=== PATIENT | male | born 1955 | race African-American/Black ===

== ENCOUNTER 2020-07-15 04:27 | Day surgery (SDC) | payer BC ==
[2020-07-14 08:19] VITALS: BMI 33.5
[2020-07-15] MEDS ORDERED: INSULIN (NOVOLOG) ASPART 100 UNITS/ML 10ML VIAL SQ ONE (10:30)
[2020-07-15] MEDS ORDERED: INSULIN REGULAR HUMAN 100 UNITS/ML *VIAL SQ ONE (10:30)
[2020-07-15] MEDS ORDERED: DESFLURANE GAS 240 ML BOTTLE IH ONE (10:44)
[2020-07-15] MEDS ORDERED: PROPOFOL 20 ML ONE (10:44)
[2020-07-15] MEDS ORDERED: MIDAZOLAM HCL 2 MG/2 ML SINGLE DOSE VIAL ONE (10:45)
[2020-07-15] MEDS ORDERED: SUCCINYLCHOLINE CHLORIDE 200 MG/10 ML SYRINGE ONE (10:46)
[2020-07-15] MEDS ORDERED: ceFAZolin SODIUM 1 GM VIAL IVPB ONE (11:39)
[2020-07-15] MEDS ORDERED: GENTAMICIN 80MG PREMIX BAG IVPB ONE (11:40)
[2020-07-15] MEDS ORDERED: FUROSEMIDE 40 MG/4 ML INJECTABLE VIAL ONE (12:02)
[2020-07-15] MEDS ORDERED: oxyCODONE HCL 5 MG TABLET PO PRN ×2 (12:32→13:09)
[2020-07-15] MEDS ORDERED: DEXTROSE 5%-0.45% SALINE 1,000 ML IV SCH (12:45)
[2020-07-15] MEDS ORDERED: ONDANSETRON 4 MG/2 ML VIAL IVPUSH PRN (13:09)
[2020-07-15] MEDS ORDERED: LACTATED RINGERS SOLUTION 1,000 ML IV SCH (13:15)
[2020-07-15 15:54] VITALS: BP 145/79; PULSE 66; TEMP 98.6
[2020-07-28 10:28] LABS: CA OXALATE MONOHYDR. 10%; SIZE 3 x 7; URIC ACID 90%; WEIGHT 176
== END 2020-07-15 15:50 | disposition home or self-care (01) ==
LOC: JASU-SURG 04:27
PROVIDERS: ATTEND Urology
PROC: 0TC78ZZ Extirpation of Matter from Left Ureter, Via Natural or Artificial Opening Endoscopic (ICD-10-PCS; principal; 2020-07-15 11:00)
PROC: 0T778DZ Dilation of Left Ureter with Intraluminal Device, Via Natural or Artificial Opening Endoscopic (ICD-10-PCS; 2020-07-15 11:00)
DX: N20.1 Calculus of ureter (principal)
CPT/HCPCS: 36415; 82360; 82962; 88300-TC; 94760